=== PATIENT | female | born 1950 | race Caucasian/White ===

== ENCOUNTER → 2019-01-06 | Outpatient (CLI) | payer OTHER ==
--- NOTE | 2019-01-06 17:01 | PCVCIMAG ---
APPROVED REPORT Study performed: 01/06/2019 14:14:48 Exam: Stress Echocardiogram Indication: Dyspnea, elevated calcium score, htn Patient Location: Echo lab Stress Nurse: Liv Epstein RN Status: routine Ht: 5 ft 4 in HR: 72 bpm BP: 138/86 mmHg Rhythm: NSR Procedure The patient underwent an Exercise Stress Test using the Casey Protocol. Blood pressure, heart rate, and EKG were monitored. An Echocardiogram was performed by technician's helper in four stages in quad fashion. At peak stress, four selected images were obtained and placed side by side with resting images for comparison. Stress Test Details Stress Test: Exercise stress testing was performed using a Casey protocol. HR Resting HR: 72 bpmMax Heart Rate (APMHR): 151 bpm Max HR Achieved: 136 bpmTarget HR (85% APMHR): 128 bpm % of APMHR: 90 Recovery HR: 85 bpm HR response to stress: Normal HR response to stress BP Resting BP: 138/86 mmHg Max BP: 190/80 mmHg Recovery BP: 168/74 mmHg BP response to stress: Normal blood pressure response to stress. ECG Resting ECG: Sinus Rhythm Stress ECG: Sinus Rhythm ST Change: Non-specific ST changes Arrhythmia: PACs Recovery ECG: Sinus Rhythm Recovery ST Change: Normal Recovery Arrhythmia: None Clinical Reason for Termination: Maximal effort Stress Symptoms: Dyspnea Exercise duration: 6 min sec Highest Stage Achieved: Stage 2: 2.5 mph at 12% grade. Exercise capacity: 7 METs Overall Exercise Capacity for Age: Average Scale: Sedentary Angina Score: None Pre-Stress Echo The resting Echocardiogram showed normal left ventricular contractility with an estimated Ejection Fraction of about >55%. Normal wall motion in all segments on baseline images. Post-Stress Echo The stress Echocardiogram showed normal left ventricular contractility with an estimated Ejection Fraction of about 65%. Normal augmentation of wall motion in all segments on post stress images. Clinical No clinical or ECG evidence for ischemia. Conclusion Clinical Response: Non-ischemic Exercise Capacity: Average Stress ECG Response: Non-ischemic Stress Echo Images: Non-ischemic The left ventricle is normal in size and wall thickness in both the rest and stress images. Mild TR with PAP of 39 mmHg. Other Information Study Quality: Adequate <Conclusion> The left ventricle is normal in size and wall thickness in both the rest and stress images. Mild TR with PAP of 39 mmHg.
== END | disposition home or self-care (01) ==
LOC: PCVCIMAG 13:49
PROVIDERS: ATTEND Internal Medicine Cardiovascular Disease
DX: R06.00 Dyspnea, unspecified (principal); R93.1 Abnormal findings on diagnostic imaging of heart and coronary circulation; I10 Essential (primary) hypertension; I73.00 Raynaud's syndrome without gangrene; E78.00 Pure hypercholesterolemia, unspecified; Z87.891 Personal history of nicotine dependence
CPT/HCPCS: 93325; 93351